=== PATIENT | male | born 2000 | race Caucasian/White ===

== ENCOUNTER 2019-12-01 18:39 | Emergency (ER) | payer OTHER ==
[~2019-12-01] VITALS: Ht 190.5 cm; Wt 91.6 kg
[2019-12-01 18:48] VITALS: Ht 190.5 cm; Wt 91.6 kg
[2019-12-01 19:27] VITALS: BP 127/68
== END 2019-12-01 19:27 | disposition home or self-care (01) ==
LOC: ED 18:39
DX: J18.9 Pneumonia, unspecified organism (principal); Z20.828 Contact with and (suspected) exposure to other viral communicable diseases
CPT/HCPCS: U0003-CS